=== PATIENT | male | born 1955 | race Caucasian/White ===

== ENCOUNTER → 2020-07-21 09:28 | Outpatient (BNVA) | payer OTHER, SELFPAY | PROVIDERS: Visit Provider Surgery | DX: Z20.822 Contact with and (suspected) exposure to COVID-19 (principal) | CPT/HCPCS: 87635 ==

== ENCOUNTER 2020-07-26 09:41 | Day surgery (SDC) | payer OTHER, SELFPAY ==
[2020-07-24 13:23] VITALS: BMI 25.1
--- NOTE | 2020-07-26 10:13 | ANES.PREANE2 ---
Pre-Anesthetic Assessment Pre-Anesthetic Assessment: Height/Weight: Height 1.75 m Weight 77.111 kg Proposed Procedure: Operation Date: 07/26/20 11:30 Proposed Procedures p EGD 98301 [id number] k62.5 k21.9(Not Applicable) - Pasquale Coon MD s Colonoscopy(Not Applicable) - Pasquale Coon MD Was Beta Pamela taken within 24 hours: N/A Was Clonidine taken within 24 hours: N/A Social: Social History: No alcohol and No tobacco Exam: Pre-Anes Outpt Exam: alert, oriented x 3, clear to auscultation bilaterally and regular rate & rhythm Airway: Submandibular: WNL Cervical ROM: WNL MP: 2 Dentition: Full GI: GI: GERD Musc/skel: Musc/skel: OA/DJD Anesthetic Plan: ASA status: 2 Anesthesia: MAC Risk of > 500 ml blood loss (7ml/kg in children): No PFSH Anesthesia PFSH: Medical History Gastroesophageal reflux disease Family History Grandmother Cancer Brother Diabetes Mother Hypertension Denies family history of CAD (coronary artery disease) Stroke Social History Smoking and tobacco status: never smoked Alcohol intake: never Lives independently: Yes Household members: spouse Data Anesthesia Cardiac Studies: No Data to Display
[2020-07-26 10:32] VITALS: BP 152/84; PULSE 90; RESP 18; TEMP 36.5; O2SAT 96
[2020-07-26] MEDS: sodium chloride 0.9% 1,000 ML 30 ML IV (10:46)
--- NOTE | 2020-07-26 11:36 | W.PM.OPSFHP ---
Same Day Surgery H&P Indication for Procedure/HPI DATE OF PROCEDURE: July 26, 2020 CHIEF COMPLAINT/INDICATIONFOR SURGICAL PROCEDURE: Blood in stool PREOP DIAGNOSIS: Bleeding per rectum PLANNED PROCEDRUE: Operation Date: 07/26/20 11:30 Proposed Procedures p EGD [id number] k62.5 k21.9(Not Applicable) - Pasquale Coon MD s Colonoscopy(Not Applicable) - Pasquale Coon MD This is a pleasant 65 years old gentleman presents with history of frequent acid reflux and has been on proton pump inhibitors for several years and age is getting worse. Patient reports he cannot increase the PPI because it does not make him sleep. Also patient reports a bout of bloody diarrhea that happen once before couple of months and he is concerned. Patient denies history of colon cancer. And reports that he never had a colonoscopy before Interval history 07/26/2020 Patient comes today for EGD and colonoscopy for diagnostic purposes ROS All systems have been reviewed negative except as per the above or per problem list Medications/Allergies* Home Medications Medication Instructions Recorded Confirmed Type aspirin 81 mg tablet,delayed 81 mg PO DAILY 06/19/20 07/24/20 History release meloxicam 15 mg tablet 15 mg PO DAILY 06/19/20 07/24/20 History omeprazole 20 mg capsule,delayed 20 mg PO DAILY 06/19/20 07/24/20 History release Allergies/Adverse Reactions Allergy/AdvReac Type Severity Reaction Status Date / Time No Known Allergies Allergy Verified 06/19/20 14:58 Current Medications: Generic Name Dose Route Start Last Admin Trade Name Freq PRN Reason Stop Dose Admin Sodium Chloride 1,000 mls @ 30 mls/hr 07/26/20 10:30 07/26/20 10:46 Sodium Chloride 0.9% IV 30 mls/hr .Q24H SAÚL Administration Pertinent History/Comorbid Conditions* Medical History (Updated 06/19/20 @ 14:58 by Pasquale Coon MD) Gastroesophageal reflux disease Family History (Updated 06/19/20 @ 13:31 by Rachel Rocha) Diabetes Brother Cancer Grandmother Hypertension Mother Denies family history of CAD (coronary artery disease) Stroke Social History Smoking and tobacco status: never smoked Alcohol intake: never Lives independently: Yes Household members: spouse Pertinent Exam Findings alert, oriented x 3, clear to auscultation bilaterally, regular rate & rhythm and procedure specific exam findings (Abdominal examination nontender nondistended soft) Recommendations Surgery/Procedure today (Diagnostic EGD and colonoscopy) Other Plans: Plan of care; After thorough history and physical examination and reviewing the chart, plan to perform a diagnostic esophagogastroduodenoscopy and diagnostic colonoscopy with possible biopsy and possible polypectomy. I discussed with the patient in detail the risks,benefits,alternatives and indications.The risk of aspiration, bleeding, soft tissue injury, perforation of the stomach/esophagus/colon and other potential concomitant complications were explained to the patient in details also the potential need for Thoracotomy and or Laproscoy/Laparotomy to repair any related complications including but not limited to colectomy and or Closotomy. The patient understood this well and did agree to proceed. Rationale was carefully and clearly discussed with the patient.Appropriate informed consent have been reviewed and signed Verbal and written Instructions were given to the patient for colonoscopy prep Coding Level of Care Code Acute Nutrition And Dietetics Instructor for Rhona Juarez
[2020-07-26 12:58] VITALS: BP 104/77; PULSE 79; RESP 16; TEMP 36.8; O2SAT 96
[2020-07-26 13:13] VITALS: BP 116/97; PULSE 81; RESP 16; TEMP 36.3; O2SAT 94
--- NOTE | 2020-07-26 15:37 | ANE.PACU2 ---
Inpatient post-anesthesia follow up: Airway intact: Yes Vital signs: Temperature 97.4 F Pulse Rate 81 Respiratory Rate 16 Blood Pressure 116/97 Pulse Oximetry 94 Oxygen Delivery Me thod Room Air Oxygen Flow Rate 4 Fraction of Inspir ed Oxygen Hydration adequate: Yes Nausea and vomiting: No Pain level: 1 Mental status: Baseline
[2020-07-27 07:57] LABS: H. Pylori / CLO Test Negative
== END 2020-07-26 13:22 | disposition home or self-care (01) ==
PROVIDERS: Visit Provider Surgery
PROC: 0DJ08ZZ Inspection of Upper Intestinal Tract, Via Natural or Artificial Opening Endoscopic (ICD-10-PCS; CPT 43235; principal; 2020-07-26 11:30)
PROC: 0DJD8ZZ Inspection of Lower Intestinal Tract, Via Natural or Artificial Opening Endoscopic (ICD-10-PCS; CPT 45378; 2020-07-26 11:30)
DX: K92.1 Melena (principal); K57.30 Diverticulosis of large intestine without perforation or abscess without bleeding; K21.00 Gastro-esophageal reflux disease with esophagitis, without bleeding; K44.9 Diaphragmatic hernia without obstruction or gangrene; K29.70 Gastritis, unspecified, without bleeding; Z79.82 Long term (current) use of aspirin; M19.90 Unspecified osteoarthritis, unspecified site
CPT/HCPCS: 43239; 45378; 87077; 96360; 96361; J2704; J7030

== ENCOUNTER 2021-08-21 11:52 | Emergency (ER) | payer OTHER, SELFPAY ==
[2021-08-21 12:05] VITALS: BP 179/88; PULSE 102; RESP 16; TEMP 36.6; O2SAT 98; BMI 25.1
--- NOTE | 2021-08-21 12:18 | CT_ITS ---
WS: [id number] CT ABDOMEN AND PELVIS NONCONTRAST HISTORY: rectal bleeding TECHNIQUE: Imaging performed through the abdomen and pelvis. Coronal and sagittal reformats are submi tted. All CT scans at [facility] use at least one of these dose optimization techniques: auto mated exposure control; mA and/or kV adjustment per patient size (includes targeted exams where dose is matched to clinical indication); or iterative reconstruction. DLP: 1345.91 mGy.cm COMPARISON: None available. Lower thorax: Lung bases are hyperexpanded. Normal size heart. Small hiatal hernia. Liver: Normal size liver. No mass or bile duct dilatation. Gallbladder: Normal gallbladder. Pancreas: Normal size and attenuation. Normal pancreatic duct. No pancreatitis or mass. Spleen: Normal. Adrenal glands: Normal. No mass. Right kidney: Normal size kidney with no mass or hydronephrosis. Left kidney: Normal size kidney with no mass or hydronephrosis. Aorta: Mild atherosclerosis abdominal aorta with no aneurysm. No free fluid, intraperitoneal air or significant lymphadenopathy. GI tract: Mildly distended stomach. No small bowel obstruction. The appendix is normal. Mild diffuse fecal retention. Significant diverticular disease throughout the colon but greatest in the descending and sigmoid colon. Lumen becomes narrowed to the sigmoid colon with innumerable diverticula. No defi nite evidence for acute diverticulitis. Abdominal wall: Negative. No hernia. Pelvis: No free fluid. Well-distended urinary bladder. Bilateral inguinal canals are patent containin g fat only. Osseous structures: Mild increase in the lumbar lordosis with facet joint arthritis at L4-5 and L5-S1 . CT/CT abdomen pelvis wo con [id number] IMPRESSION: 1. Extensive diverticulosis in the descending and sigmoid colon. Innumerable d iverticula throughout the sigmoid region with narrowing of the lumen. No eviden ce for acute diverticulitis. 2. Mild atherosclerosis aorta. 3. Normal appendix.
--- NOTE | 2021-08-21 12:29 | ED_ITS ---
HPI - General Adult General: Chief complaint: GI Bleed Stated complaint: Blood in Stool Time Seen by Provider: 08/21/21 12:18 History of Present Illness: Patient is a 66-year-old male with history of diverticulosis, last colonoscopy was in 2020 presenting to the emergency room with 4 days of blood in stool. Patient tells me that every time he stool, he noticed large bright color streaks of blood in his stool. Patient denies any rectal pain. Denies any fever/chills, bleeding without stooling, abdominal pain use of anticoagulation or cirrhosis. Patient is no focal abdominal pain. Denies any fever/chills, cough, chest pain, lightheadedness shortness of breath, palpitation, runny nose sore throat, nausea/vomiting. Patient thinks that everything started shortly after he ate pizza on Friday. Patient has no prior abdominal surgeries. No complaints at this time. Onset: 4 days ago Duration:4 days Location:home Severity:moderate Associated symptoms: Deny chest pain, dyspnea, nausea, rash, palpitations or vomiting Review of Systems Const: Denies: fever(s) or chills Eyes: Denies: change in vision ENMT: Denies: mouth pain Card: Denies: chest pain or palpitations Resp: Denies: dyspnea or non-productive cough GI: Reports: other (+blood in stool); Denies: abdominal pain, nausea, vomiting or diarrhea : Denies: dysuria Musc: Denies: extremity pain Skin/Breast: Denies: rash or new lesions Neuro: Denies: weakness in extremities Psych: Reports: other (Normal mood) Dariel/Lymph: Denies: easy bruising [facility] PFSH: Medical History Bleeding per rectum Diverticulosis Gastritis Gastroesophageal reflux disease Hiatal hernia Hypertension Surgical History History of tonsillectomy and adenoidectomy Family History Grandmother Cancer Brother Diabetes Mother Hypertension Denies family history of CAD (coronary artery disease) Stroke Social History Smoking and tobacco status: former smoker Alcohol intake: never Lives independently: Yes Household members: spouse Physical Exam Const: COMMON NORMALS: alert HENMT: COMMON NORMALS: atraumatic HEAD & SCALP: atraumatic MOUTH: moist mucous membranes not abnormal Eye: COMMON NORMALS: EOMs intact bilaterally and conjunctivae normal CONJUNCTIVA: Yes conjunctivae normal Neck/C-Spine: COMMON NORMALS: full ROM and supple Resp: COMMON NORMALS: normal respiratory effort and clear to auscultation bilaterally AUSCULTATION: clear to auscultation bilaterally Cardio: COMMON NORMALS: regular rate RATE: regular rate GI: COMMON NORMALS: Soft to palpation and non-tender PALPATION: Yes Soft to palpation OTHER: No focal TTP. NO guarding rebound, guarding, rigidity. No CVA tenderness to percussion. Neg Levine/Neg McBurney's point tenderness, no suprabupic tenderness to palpation. RECTAL: blood in the stool hemoocult positive, no visible hemorrhoids or anal fissure Extremity: COMMON NORMALS: full ROM Neuro: SENSORIUM/ORIENTATION: Yes alert MOTOR EXAM: No Abnormal motor strength present and Other motor observations present (no focal motor deficits) Psych: COMMON NORMALS: speech normal SPEECH: Yes normal speech MOOD & AFFECT: Yes euthymic mood Course Vital Signs: Vital signs: Vital Signs Temperature 97.8 F 08/21/21 12:05 Pulse Rate 86 08/21/21 12:38 Respiratory Rate 16 08/21/21 12:05 Blood Pressure 113/91 08/21/21 12:38 Pulse Oximetry 98 08/21/21 12:38 [facility] - General Adult Medical Decision Making 66-year-old male with a history of diverticulosis presenting to the emergency room for concerns of bright red blood per rectum x4 days. On physical exam, patient is hemodynamically stable. No visible conjunctival pallor. No focal abdominal tenderness to palpation. Rectal exam showed dark stools Hemoccult positive. Hemoglobin of 10 today without any prior for comparison. CT of pelvis not showing signs of diverticulitis. Patient was noted to have extensive diverticulosis. Discussed case with Dr. Carson at 1:[address] Carson recommend close follow-up tomorrow's clinic for reassessment. I have given patient follow up with our case manager specialist to be seen by Dr. Carson for reassessment tomorrow in clinic. Patient aware of a call from our case manager specialist to schedule for appointment(s) and verbalizes understanding of the imp ortance of following up. Rx iron for anemia Disposition: Discharge. Patient counseled regarding diagnostic impression, treatment plan. Patient given ED strict return precautions to return for eva nuation, worsening, or development of new symptoms. Instructed to f/u w/ Dr. Carson regarding symptoms today. Patient verbalized understanding. Patient is instructed come back to the emergency room if he notices any significant bleeding, lightheadedness, abdominal pain, or any new or concerning complaints. Lab Data : 08/21/21 12:38 08/21/21 12:38 Radiology Impressions Abdomen/Pelvis CT 08/21/21 12:18 IMPRESSION: 1. Extensive diverticulosis in the descending and sigmoid colon. Innumerable diverticula throughout the sigmoid region with narrowing of the lumen. No evidence for acute diverticulitis. 2. Mild atherosclerosis aorta. 3. Normal appendix. Laboratory Results WBC 6.9 10^3/uL (4.0-10.0) 08/21/21 12:38 RBC 3.04 10^6/uL (4.1-5.3) L 08/21/21 12:38 Hgb 10.0 g/dL (11.7-16.6) L 08/21/21 12:38 Hct 26.8 % (42.0-52.0) L 08/21/21 12:38 MCV 88.2 fl (80-94) 08/21/21 12:38 MCH 32.9 pg (28.0-34.0) 08/21/21 12:38 MCHC 37.3 g/dL (30.0-36.0) H 08/21/21 12:38 RDW 12.0 % (12.1-15.1) L 08/21/21 12:38 Plt Count 309 10^3/cmm (130-400) 08/21/21 12:38 MPV 8.9 fL (7.4-10.4) 08/21/21 12:38 Neut % (Auto) 62.6 % 08/21/21 12:38 Lymph % (Auto) 27.3 % 08/21/21 12:38 [place] % (Auto) 9.0 % 08/21/21 12:38 Eos % (Auto) 0.6 % 08/21/21 12:38 Baso % (Auto) 0.4 % 08/21/21 12:38 Neut # (Auto) 4.31 10^3/uL (1.8-7.7) 08/21/21 12:38 Lymph # (Auto) 1.9 10^3/uL (0.8-4.8) 08/21/21 12:38 [place] # (Auto) 0.6 10^3/uL (0.2-0.9) 08/21/21 12:38 Eos # (Auto) 0.0 10^3/uL (0.0-0.8) 08/21/21 12:38 Baso # (Auto) 0.0 10^3/uL (0.0-0.1) 08/21/21 12:38 Nucleated RBC % (auto) 0 % 08/21/21 12:38 Nucleated RBCs # 0.0 /100WBC 08/21/21 12:38 Sodium 136 mmol/L (136-145) 08/21/21 12:38 Potassium 3.3 mmol/L (3.5-5.1) L 08/21/21 12:38 Chloride 97 mmol/L (98-107) L 08/21/21 12:38 Carbon Dioxide 25 mmol/L (22-29) 08/21/21 12:38 Anion Gap 17.3 (5-19) 08/21/21 12:38 BUN 29 mg/dL (8-23) H 08/21/21 12:38 Creatinine 0.8 mg/dL (0.7-1.2) 08/21/21 12:38 GFR Calculation 97.3 mL/min (90-130) 08/21/21 12:38 Glucose 105 mg/dL (65-115) 08/21/21 12:38 Calculated Osmolality 288 mOsm/kg (285-295) 08/21/21 12:38 Calcium 8.8 mg/dL (8.5-10.5) 08/21/21 12:38 Total Bilirubin 0.7 mg/dL (0.15-1.2) 08/21/21 12:38 AST 14 U/L (0-40) 08/21/21 12:38 ALT 8 U/L (0-41) 08/21/21 12:38 Alkaline Phosphatase 53 IU/L (40-130) 08/21/21 12:38 Total Protein 6.6 g/dL (6.6-8.7) 08/21/21 12:38 Albumin 4.2 g/dL (3.5-5.2) 08/21/21 12:38 Globulin 2.4 g/dL (1.3-4.6) 08/21/21 12:38 Lipase 25 U/L (13-60) 08/21/21 12:38 Imaging Data Other Imaging: Radiologist's impression: [facility] [address] [place] [address] CT Scan Report Signed Patient: Julian Huddleston Unit #: [id number] : 1955 Age/Sex: 66 / M ADM Date: 08/21/21 Loc: ER Room/Bed: Attending Dr: Ordering Provider/Ordering MD: Johan Enriquez MD Date of Service: 08/21/21 Procedure(s): CT abdomen pelvis con 19606 Accession Number(s): [id number] Report Number: [id number] WS: [id number] CT ABDOMEN AND PELVIS NONCONTRAST HISTORY: rectal bleeding TECHNIQUE: Imaging performed through the abdomen and pelvis. Coronal and sagittal reformats are submitted.? All CT scans at [facility] use at least one of these dose optimization techniques: automated exposure control; mA and/or kV adjustment per patient size (includes targeted exams where dose is matched to clinical indication); or iterative reconstruction. ? DLP: 1345.91 mGy.cm COMPARISON: None available. Lower thorax: Lung bases are hyperexpanded. Normal size heart. Small hiatal hernia. Liver: Normal size liver. No mass or bile duct dilatation. Gallbladder: Normal gallbladder. Pancreas: Normal size and attenuation. Normal pancreatic duct. No pancreatitis or mass. Spleen: Normal. Adrenal glands: Normal. No mass. Right kidney: Normal size kidney with no mass or hydronephrosis. Left kidney: Normal size kidney with no mass or hydronephrosis. Aorta: Mild atherosclerosis abdominal aorta with no aneurysm. No free fluid, intraperitoneal air or significant lymphadenopathy. GI tract: Mildly distended stomach. No small bowel obstruction. The appendix is normal. Mild diffuse fecal retention. Significant diverticular disease throughout the colon but greatest in the descending and sigmoid colon. Lumen becomes narrowed to the sigmoid colon with innumerable diverticula. No definite evidence for acute diverticulitis. Abdominal wall: Negative. No hernia. Pelvis: No free fluid. Well-distended urinary bladder. Bilateral inguinal canals are patent containing fat only. Osseous structures: Mild increase in the lumbar lordosis with facet joint arthritis at L4-5 and L5-S1. CT/CT abdomen pelvis wo con [id number] IMPRESSION: ? 1.? Extensive diverticulosis in the descending and sigmoid colon. Innumerable diverticula throughout the sigmoid region with narrowing of the lumen. No evid ence for acute diverticulitis. 2.? Mild atherosclerosis aorta. 3.? Normal appendix. ? Dictated By: Jackelyn Ferrer DO Signed By: Jackelyn Ferrer DO Signed Date/Time: 08/21/21 1304 DD/ 1257 Discharge Plan Discharge Patient Disposition: Home Clinical Impression: Diverticulosis, Rectal bleed Condition: Stable Prescriptions: New ferrous sulfate 325 mg (65 mg iron) tablet 325 mg PO DAILY 20 Days Qty: 20 0RF No Action meloxicam 15 mg tablet 15 mg PO DAILY 0RF Hold Instructions: Resume on 07/29/20. aspirin 81 mg tablet,delayed release (DR/EC) 81 mg PO DAILY 0RF Hold Instructions: Resume on 07/29/20. hydrochlorothiazide 25 mg tablet 25 mg PO DAILY 0RF omeprazole 20 mg capsule,delayed release(DR/EC) 20 mg PO BID Qty: 60 2RF Discharge Orders: Discharge ED (Routine); Ordered 08/21/21 Ordered By: Johan Enriquez Discharge Diet: Advance as tolerated Discharge Activity: Increase activity as tolerated Activity Restrictions/Additional Instructions: Our case manager specialist will have you follow-up with Dr. Carson in his office tomorrow. You would be expected to have a phone call with our case manager specialist who will put you on the schedule. You can expect a call from us in the next 2-3 days. If you don't hear from us, call us back in the emergency room at [phone]. Back if you have any lightheadedness, abdominal pain, worsening rectal bleeding, or anything else prior to seeing Dr. Carson Coding Level of Care Code ED [employer] Attendant for [facility] Fwd Exam Comprehensive
[2021-08-21 12:38] VITALS: BP 113/91; PULSE 86; O2SAT 98
[2021-08-21 13:08] LABS: Alanine Aminotransferase 8 U/L (0-41); Albumin Level 4.2 g/dL (3.5-5.2); Alkaline Phosphatase 53 IU/L (40-130); Anion Gap 17.3 (5-19); Aspartate Amino Transferase 14 U/L (0-40); Basophils % 0.4 %; Blood Urea Nitrogen 29 mg/dL (8-23); Calcium 8.8 mg/dL (8.5-10.5); Carbon Dioxide 25 mmol/L (22-29); Chloride 97 mmol/L (98-107); Creatinine Clr Calc Pharmacy 96.6683; Eosinophils % 0.6 %; Globulin 2.4 g/dL (1.3-4.6); Glomerular Filtration Rate 97.3 mL/min (90-130); Glucose 105 mg/dL (65-115); Hematocrit 26.8 % (42.0-52.0); Lipase 25 U/L (13-60); Lymphocytes # 1.9 10^3/uL (0.8-4.8); Lymphocytes % 27.3 %; Mean Corpuscular HGB Conc 37.3 g/dL (30.0-36.0); Mean Corpuscular Hemoglobin 32.9 pg (28.0-34.0); Mean Corpuscular Volume 88.2 fl (80-94); Mean Platelet Volume 8.9 fL (7.4-10.4); Monocytes # 0.6 10^3/uL (0.2-0.9); Neutrophils # 4.31 10^3/uL (1.8-7.7); Neutrophils % 62.6 %; Nucleated Red Blood Cells % 0 %; Osmolality Calculated 288 mOsm/kg (285-295); Platelet Count 309 10^3/cmm (130-400); Potassium 3.3 mmol/L (3.5-5.1); Red Blood Count 3.04 10^6/uL (4.1-5.3); Sodium 136 mmol/L (136-145); Total Bilirubin 0.7 mg/dL (0.15-1.2); Total Protein 6.6 g/dL (6.6-8.7); White Blood Count 6.9 10^3/uL (4.0-10.0)
[2021-08-21 13:38] VITALS: BP 127/87; PULSE 82; O2SAT 97
[2021-08-21 13:54] VITALS: BP 134/87; PULSE 89; RESP 15; O2SAT 97
[2021-08-21 13:54] LABS: Add Urine Microscopic? YES; Bilirubin Urine Neg (Negative); Blood Urine Neg (Negative); Glucose Urine UA Norm (Normal); Ketones Urine 1+ (Negative); Leukocyte Esterase Urine Negative (Negative); Nitrate Urine Negative (Negative); Protein Urine Neg (Negative); Sulfosalicylic Acid Urine Negative (Negative); Urine Appearance Clear (CLEAR); Urine Color Yellow (Yellow); Urobilinogen Urine Norm (Negative); pH Urine 5 (5-7)
[2021-08-21 13:55] LABS: Add Urine Culture? No; RBC Urine 0-4 /hpf (0-2); Squamous Epithelial Cell Urine 0-4 /hpf (0-5)
--- NOTE | 2021-08-21 14:16 | DCPLANNER ---
Addendum entered by Mely Mejia 08/26/21 04:26: Patient had a follow up appointment scheduled for 08.22.[address] Carson at General Surgery - patient did attend appointment. Original Note: assistant manager retail was asked to schedule a follow up appointment for patient with general surgery, Dr. Carson. assistant manager retail called the general surgery clinic, spoke with Pepper, gave clinic patients information. assistant manager retail was told that clinic would need a [facility] auth to schedule an appointment since patient has [employer] insurance. assistant manager retail sent patients information to Debbie with [employer] [facility] for the authorization process to be started. assistant manager retail gave patient the phone number to general surgery to call for appointment information.
== END 2021-08-21 13:56 | disposition home or self-care (01) ==
PROVIDERS: Emergency Provider Emergency Medicine
DX: D50.9 Iron deficiency anemia, unspecified (principal); K62.5 Hemorrhage of anus and rectum; K57.90 Diverticulosis of intestine, part unspecified, without perforation or abscess without bleeding; I10 Essential (primary) hypertension
CPT/HCPCS: 74176; 80053; 81001; 83690; 85025; 99283

== ENCOUNTER → 2021-08-22 13:00 | Outpatient (BNVA) | payer OTHER, SELFPAY | PROVIDERS: Visit Provider Surgery | DX: K57.90 Diverticulosis of intestine, part unspecified, without perforation or abscess without bleeding (principal); K62.5 Hemorrhage of anus and rectum | CPT/HCPCS: 99213 ==

== ENCOUNTER → 2021-11-28 07:47 | Outpatient (BNVA) | payer OTHER, SELFPAY | PROVIDERS: Visit Provider Orthopaedic Surgery | DX: M67.912 Unspecified disorder of synovium and tendon, left shoulder (principal) | CPT/HCPCS: 20610; 99203; J0702; J3490 ==

== ENCOUNTER → 2022-06-26 07:44 | Outpatient (BNVA) | payer OTHER, SELFPAY | PROVIDERS: Referring Provider Family Medicine; Visit Provider Orthopaedic Surgery | DX: M67.912 Unspecified disorder of synovium and tendon, left shoulder (principal) | CPT/HCPCS: 99213 ==

== ENCOUNTER 2022-07-15 07:47 | Outpatient (CLI) | payer OTHER, SELFPAY ==
--- NOTE | 2022-07-15 08:00 | MR_ITS ---
WS: [id number] MRI LEFT SHOULDER HISTORY: Pain for one year. No known injury. COMPARISON: Shoulder radiograph 10/19/2021 TECHNIQUE: Multiplanar sequences of the shoulder joint are submitted. Moderate to severe AC joint arthritis. Joint space narrowing with osteophytes. Subchondral edema. 5.8 mm osteophyte from the acromion encroaches upon the myotendinous insertion of the supraspinatus. The re is a small amount of fluid in the subacromial and subdeltoid bursa. Mild subacromial impingement. No os acromion. Biceps tendon in normal position. There is an osteophyte from the humeral head contac ting the biceps tendon as it exits the bicipital groove. Moderate to severe fraying of the supraspinatus tendon. There is fraying along the articular and burs al surfaces of the tendon. No definite tears are identified. No full-thickness tear for sure. There i s encroachment upon the supraspinatus tendon by subacromial impingement. Mild tendinopathy distal sub scapularis tendon without tear. Subscapularis tendon is being distorted and contacted by an osteophyt e from the humeral head. Infraspinatus tendon is intact. No muscle atrophy or edema. No labral tear i s identified. Small joint effusion. Fraying of the labrum but no definite tears are identified. Slightly elevated humeral head. Osteophytic ridging around the humeral head. MR/MR shoulder LT wo con* [id number] IMPRESSION: 1. 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 2. Marked fraying involving the articular and bursal surfaces of the supraspin atus tendon but no tear identified. 3. Mild subacromial impingement. 4. Mild distal subscapularis tendinopathy. The subscapularis tendon is being d istorted and slightly displaced by humeral head osteophyte.
== END 2022-07-15 07:48 | disposition home or self-care (01) ==
LOC: RAD 07:50
PROVIDERS: PCP Family Medicine; Visit Provider Orthopaedic Surgery
DX: M67.912 Unspecified disorder of synovium and tendon, left shoulder (principal); M25.812 Other specified joint disorders, left shoulder
CPT/HCPCS: 73221

== ENCOUNTER → 2022-08-06 09:57 | Outpatient (BNVA) | payer OTHER, SELFPAY | PROVIDERS: PCP Family Medicine; Visit Provider Orthopaedic Surgery | DX: Z09 Encounter for follow-up examination after completed treatment for conditions other than malignant neoplasm (principal); M67.912 Unspecified disorder of synovium and tendon, left shoulder | CPT/HCPCS: 99213 ==

== ENCOUNTER 2022-08-08 06:00 | Outpatient (RCR) | payer OTHER, SELFPAY | END 2022-09-06 23:59 | disposition home or self-care (01) | LOC: MPT 06:00 | PROVIDERS: Visit Provider Orthopaedic Surgery | DX: M19.012 Primary osteoarthritis, left shoulder (principal) | CPT/HCPCS: 97110; 97161 ==

== ENCOUNTER 2022-09-07 06:00 | Outpatient (RCR) | payer OTHER, SELFPAY | END 2022-10-07 23:59 | disposition home or self-care (01) | LOC: MPT 06:00 | PROVIDERS: Visit Provider Orthopaedic Surgery | DX: M19.012 Primary osteoarthritis, left shoulder (principal) | CPT/HCPCS: 97110; 97140 ==

== ENCOUNTER 2022-10-08 06:00 | Outpatient (RCR) | payer OTHER, SELFPAY | END 2022-11-07 23:59 | disposition home or self-care (01) | LOC: MPT 06:00 | PROVIDERS: Visit Provider Orthopaedic Surgery | DX: M19.012 Primary osteoarthritis, left shoulder (principal) | CPT/HCPCS: 97110; 97140 ==

== ENCOUNTER 2022-11-08 06:00 | Outpatient (RCR) | payer OTHER, SELFPAY | END 2022-12-05 23:59 | disposition home or self-care (01) | LOC: MPT 06:00 | PROVIDERS: Visit Provider Orthopaedic Surgery | DX: M19.012 Primary osteoarthritis, left shoulder (principal) | CPT/HCPCS: 97110 ==

== ENCOUNTER → 2023-02-27 10:18 | Outpatient (BNVA) | payer OTHER, SELFPAY | PROVIDERS: Visit Provider Nurse Practitioner Family | DX: Z80.8 Family history of malignant neoplasm of other organs or systems (principal); Z85.820 Personal history of malignant melanoma of skin; D22.5 Melanocytic nevi of trunk; L82.1 Other seborrheic keratosis; L57.8 Other skin changes due to chronic exposure to nonionizing radiation | CPT/HCPCS: 11102; 17000; 99213 ==

== ENCOUNTER 2023-09-19 06:00 | Outpatient (RCR) | payer OTHER, SELFPAY | END 2023-10-08 23:59 | disposition home or self-care (01) | LOC: MPT 06:00 | PROVIDERS: Visit Provider Family Medicine | DX: M25.561 Pain in right knee (principal) | CPT/HCPCS: 97110; 97162 ==

== ENCOUNTER → 2023-10-03 07:51 | Outpatient (BNVA) | payer OTHER, SELFPAY | PROVIDERS: Visit Provider Nurse Practitioner Family | DX: L57.0 Actinic keratosis (principal); Z80.8 Family history of malignant neoplasm of other organs or systems; D22.5 Melanocytic nevi of trunk; L57.8 Other skin changes due to chronic exposure to nonionizing radiation; L81.4 Other melanin hyperpigmentation; L72.0 Epidermal cyst; Z85.820 Personal history of malignant melanoma of skin | CPT/HCPCS: 17000; 99213 ==

== ENCOUNTER 2023-10-09 06:00 | Outpatient (RCR) | payer OTHER, SELFPAY | END 2023-11-08 23:59 | disposition home or self-care (01) | LOC: MPT 06:00 | PROVIDERS: Visit Provider Family Medicine | DX: M25.561 Pain in right knee (principal) | CPT/HCPCS: 97110 ==

== ENCOUNTER 2023-11-09 06:00 | Outpatient (RCR) | payer OTHER, SELFPAY | END 2023-12-08 23:59 | disposition home or self-care (01) | LOC: MPT 06:00 | PROVIDERS: Visit Provider Family Medicine | DX: M25.561 Pain in right knee (principal) | CPT/HCPCS: 97110 ==

== ENCOUNTER 2023-12-09 06:00 | Outpatient (RCR) | payer OTHER, SELFPAY | END 2024-01-08 23:59 | disposition home or self-care (01) | LOC: MPT 06:00 | PROVIDERS: PCP Family Medicine; Visit Provider Family Medicine | DX: M25.561 Pain in right knee (principal) | CPT/HCPCS: 97110 ==

== ENCOUNTER → 2024-04-14 10:28 | Outpatient (BNVA) | payer OTHER, SELFPAY | PROVIDERS: PCP Family Medicine; Visit Provider Nurse Practitioner Family | DX: L82.1 Other seborrheic keratosis (principal); L72.0 Epidermal cyst; D18.01 Hemangioma of skin and subcutaneous tissue; L57.8 Other skin changes due to chronic exposure to nonionizing radiation; L81.4 Other melanin hyperpigmentation; Z80.8 Family history of malignant neoplasm of other organs or systems; Z08 Encounter for follow-up examination after completed treatment for malignant neoplasm; Z85.820 Personal history of malignant melanoma of skin; L57.0 Actinic keratosis | CPT/HCPCS: 17000; 99213 ==

== ENCOUNTER 2024-08-18 08:15 | Emergency (ER) | payer OTHER, SELFPAY ==
[2024-08-18] VITALS (13 sets, daily range): BP systolic 136–175; BP diastolic 82–113; PULSE 74–92; RESP 16–18; TEMP 36.1–36.8; O2SAT 96–100
--- NOTE | 2024-08-18 08:39 | XR_ITS ---
WS: [id number] Portable AP upright chest, 08/18/2024 Clinical Data: dyspnea/cough Comparison: None. Findings: No nodules, masses or effusions are seen. The heart is normal. The pulmonary vascularity is not increased. No pneumonia or pneumothorax is seen. There is blunting of the left costophrenic angle which may be from minimal consolidation, minimal pleural fluid atelectasis and/or pleural reaction. The aortic arch shows calcification with tortuosity of the descending thoracic aorta. XR/XR chest 1V portable [id number] Impression: 1. Blunting of the left costophrenic angle. 2. Atherosclerosis.
--- NOTE | 2024-08-18 08:39 | W.ED.WEAKNES ---
HPI - Weakness General: Chief complaint: Weakness Stated complaint: physical eval Time Seen by Provider: 08/18/24 08:22 History of Present Illness: 69-year-old male presents emergency room complaining of generally feeling tired and weak. He traces it back to a few weeks ago patient had an episode of bloody diarrhea he related to some foods that he ate and self diagnosed as having diverticulitis he was not on any antibiotics it resolved but he states since then he is felt very weak. He gets chest pain and discomfort with exertion. He gives example when he push mows the lawn he will have to stop several x 5 minutes at a time to catch his breath but allow the chest pain to cookie and then he is able to resume and he will get another episode after period of time. He states usually when he mows his lawn he will have at least 3 times or off to stop for 5 minutes because of chest pain and discomfort. He had a colonoscopy approximately 5 years ago he was advised he had some diverticuli but no polyps or other abnormalities did not request for him to have a repeat any sooner than the typical 10 years. Patient states he has had 3 episodes in the past 3 [place] bloody diarrhea resolves assumed it was diverticulitis he adjusted his diet and it seems to resolve on its own. Associated symptoms: Reports chest pain; Denies chills, dysuria, fever(s), nausea or vomiting Review of Systems Const: Denies: fever(s) or chills Card: Reports: chest pain, palpitations, dyspnea on exertion and orthopnea Resp: Reports: dyspnea GI: Reports: hematochezia; Denies: abdominal pain, nausea, vomiting or hematemesis : Denies: dysuria, urinary frequency or urinary urgency Musc: Denies: neck pain or back pain Skin/Breast: Denies: rash PFSH ED PFSH: Medical History Hypertension Diverticulosis Hiatal hernia Gastritis Bleeding per rectum Gastroesophageal reflux disease Surgical History History of esophagogastroduodenoscopy (EGD) 07/26/2020 Hx of colonoscopy 07/26/2020 History of tonsillectomy and adenoidectomy Family History Grandmother Cancer Brother Diabetes Mother Hypertension Denies family history of CAD (coronary artery disease) Stroke Social History Smoking and tobacco/nicotine status: former use of tobacco/nicotine Alcohol intake: never Substance/Drug Use: never Lives independently: Yes Household members: spouse Physical Exam Const: COMMON NORMALS: no acute distress GENERAL APPEARANCE: cooperative and comfortable ORIENTATION/CONSCIOUSNESS: Yes awake, Yes oriented to person, Yes oriented to place and Yes oriented to time HENMT: COMMON NORMALS: normocephalic, atraumatic and hearing grossly normal bilaterally HEAD & SCALP: normocephalic and atraumatic Resp: COMMON NORMALS: normal respiratory effort, No retractions, No use of accessory muscles and clear to auscultation bilaterally AUSCULTATION: clear to auscultation bilaterally Cardio: COMMON NORMALS: regular rate, regular rhythm and No murmurs present (Cardio) RATE: regular rate RHYTHM: regular rhythm GI: COMMON NORMALS: Soft to palpation and No hepatosplenomegaly present AUSCULTATION: Yes normoactive bowel sounds PALPATION: Yes Soft to palpation, No Tenderness to palpation present (GI), No Guarding due to palpation present (GI) and Yes No hepatosplenomegaly present Extremity: COMMON NORMALS: normal to inspection, capillary refill normal, no clubbing, cyanosis or edema, no calf tenderness and no pedal edema Neuro: SENSORIUM/ORIENTATION: Yes oriented to person, Yes oriented to place and Yes oriented to time Skin: COMMON NORMALS: no rashes or lesions noted GENERAL SKIN EXAM: no rashes or lesions noted Course Vital Signs: Vital signs: Vital Signs Temperature 98 F 08/18/24 13:06 Pulse Rate 76 08/18/24 13:06 Respiratory Rate 18 08/18/24 13:06 Blood Pressure 154/112 08/18/24 13:06 Pulse Oximetry 100 08/18/24 11:56 Oxygen Delivery Me thod Room Air 08/18/24 08:28 MDM - Weakness Medical Decision Making Patient has several different things going on all of which are quite concerning first he has a pretty substantial history of stable angina. It sounds like it is escalating he certainly needs further cardiac evaluation. He additionally has pretty noticeable anemia it is microcytic in nature suspect from GI losses although the Hemoccult today was negative and he has not identified any GI losses. On his CT however there is a circumferential thickening of the colon at the hepatic flexure which radiology read is very concerning for colon cancer he tells me he did have a previous colonoscopy several years ago he cannot member the exact date but they were told it was normal and he did not need to do anything more than routine follow-up. Concern with this patient is the potential for coronary artery disease and anemia I recommended to him that we admit transfuse him to a appropriate hemoglobin and then evaluate his heart so that he can be released to have a colonoscopy to evaluate the colonic mass seen on CT and further evaluate this because of his anemia. Expressed to the patient that if we try to do his cardiac evaluation as an outpatient obvious significant delay in getting his workup done for this colonic mass. He expresses understanding this and is adamant that he wants to go home we were able to get him to allow us to discharge him from the ER and go to outpatients for 1 unit of blood to be transfused. Suspect what he has been riding off to diverticulitis has been bleeding from this colonic mass which means has been present for some time expressed this to him and the importance of he get this evaluated quickly and that by staying on obsess would expedite that in a more efficient manner despite this he does not wish to stay. He did sign out paperwork for [facility]INST MEDICAL ADVICE because is not following her treatment encourage patient that he can return anytime if he wishes to be evaluated further. Case management make arrangements for him to see cardiology. Medical Records I reviewed the patient's medical records. Lab Data I reviewed the patient's lab results. 08/18/24 09:02 08/18/24 09:02 Radiology Impressions Chest X-Ray 08/18/24 08:39 Impression: 1. Blunting of the left costophrenic angle. 2. Atherosclerosis. Abdomen/Pelvis CT 08/18/24 09:33 IMPRESSION: 1. Moderate segment of circumferential colonic wall thickening involving the hepatic flexure with change in caliber. No adjacent lymph nodes. Suspicious for neoplasm until proven otherwise. 2. Extensive descending and sigmoid diverticulosis without acute diverticulitis. 3. No abscess or free fluid. 4. 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 5. Extensive atherosclerotic plaque within the aorta and iliac arteries. 6. Patent bilateral inguinal canals containing fat only. There is a small bowel loop closely associated with the orifice of the RIGHT inguinal canal. Laboratory Results WBC 4.22 10^3/uL (3.29-11.43) 08/18/24 09:02 RBC 3.02 10^6/uL (3.85-5.65) L 08/18/24 09:02 Hgb 7.30 g/dL (11.27-16.99) L 08/18/24 09:02 Hct 24.4 % (37-53) L 08/18/24 09:02 MCV 80.8 fl (82-101) L 08/18/24 09:02 MCH 24.2 pg (27-33) L 08/18/24 09:02 MCHC 29.9 g/dL (30-55) L 08/18/24 09:02 RDW 18.2 % (12.1-15.1) H 08/18/24 09:02 Plt Count 424 10^3/cmm (157-399) H 08/18/24 09:02 MPV 8.7 fL (7.4-10.4) 08/18/24 09:02 Neut % (Auto) 52.9 % 08/18/24 09:02 Lymph % (Auto) 31.3 % 08/18/24 09:02 Wagoner % (Auto) 11.6 % 08/18/24 09:02 Eos % (Auto) 2.6 % 08/18/24 09:02 Baso % (Auto) 1.4 % 08/18/24 09:02 Neut # (Auto) 2.23 10^3/uL (1.8-7.7) 08/18/24 09:02 Lymph # (Auto) 1.3 10^3/uL (0.8-4.8) 08/18/24 09:02 [place]er # (Auto) 0.5 10^3/uL (0.2-0.9) 08/18/24 09:02 Eos # (Auto) 0.1 10^3/uL (0.0-0.8) 08/18/24 09:02 Baso # (Auto) 0.1 10^3/uL (0.0-0.1) 08/18/24 09:02 Nucleated RBC % (auto) 0 % 08/18/24 09:02 Nucleated RBCs # 0.0 /100WBC 08/18/24 09:02 Sodium 133 mmol/L (136-145) L 08/18/24 09:02 Potassium 3.7 mmol/L (3.5-5.1) 08/18/24 09:02 Chloride 98 mmol/L (98-107) 08/18/24 09:02 Carbon Dioxide 22 mmol/L (22-29) 08/18/24 09:02 Anion Gap 16.7 (5-19) 08/18/24 09:02 BUN 24 mg/dL (8-23) H 08/18/24 09:02 Creatinine 0.9 mg/dL (0.7-1.2) 08/18/24 09:02 GFR Calculation 84.2 mL/min (90-130) L 08/18/24 09:02 Glucose 121 mg/dL (65-115) H 08/18/24 09:02 Calculated Osmolality 281 mOsm/kg (285-295) L 08/18/24 09:02 Lactic Acid 1.5 mmol/L (0.5-2.2) 08/18/24 09:02 Calcium 9.1 mg/dL (8.5-10.5) 08/18/24 09:02 Total Bilirubin 0.5 mg/dL (0.15-1.2) 08/18/24 09:02 AST 13 U/L (0-40) 08/18/24 09:02 ALT 7 U/L (0-41) 08/18/24 09:02 Alkaline Phosphatase 56 U/L (40-130) 08/18/24 09:02 Troponin T Baseline 32 ng/L (0-15) H 08/18/24 09:02 Troponin T 120 Minute 29.17 ng/L (0-15) H 08/18/24 10:45 Delta Troponin T -2.83 ABS# (0-10) L 08/18/24 10:45 Total Protein 6.8 g/dL (6.6-8.7) 08/18/24 09:02 Albumin 4.0 g/dL (3.5-5.2) 08/18/24 09:02 Globulin 2.8 g/dL (1.3-4.6) 08/18/24 09:02 Urine Color Yellow (Yellow) 08/18/24 08:47 Urine Appearance Clear (CLEAR) 08/18/24 08:47 Urine pH 6.5 (5-7) 08/18/24 08:47 Ur Specific [place] 1.019 (1.005-1.030) 08/18/24 08:47 Urine Protein Negative (Negative) 08/18/24 08:47 Urine Glucose (UA) Negative (Normal) 08/18/24 08:47 Urine Ketones Negative (Negative) 08/18/24 08:47 Urine Blood Negative (Negative) 08/18/24 08:47 Urine Nitrate Negative (Negative) 08/18/24 08:47 Urine Bilirubin Negative (Negative) 08/18/24 08:47 Urine Urobilinogen 1.0 mg/dL (Negative) 08/18/24 08:47 Ur Leukocyte Esterase Negative (Negative) 08/18/24 08:47 Urine RBC 0-2 /hpf (0-2) 08/18/24 08:47 Urine WBC 0-5 /hpf (0-5) 08/18/24 08:47 Ur Squamous Epith Cells 0-5 /hpf (0-5) 08/18/24 08:47 Amorphous Sediment Not Reportable 08/18/24 08:47 Urine Bacteria None seen /hpf (NONE) 08/18/24 08:47 Hyaline Casts 0.40 /lpf 08/18/24 08:47 Blood Type A Positive 08/18/24 09:50 Rho(D) Type Rh positive 08/18/24 09:50 Antibody Screen Negative 08/18/24 09:50 Crossmatch See Detail 08/18/24 09:50 All radiology interpretation(s) finalized by discharge Discharge Plan Discharge Patient Disposition: Home Clinical Impression: Anemia, Stable angina, Microcytic anemia, Mass of hepatic flexure of colon Condition: Stable Discharge Orders: Discharge ED (Routine); Ordered 08/18/24 Ordered By: Kris Connell Coding Level of Care Code 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 Fwd Related Data Home Medications ?Medication ?Instructions ?Recorded ?Confirmed ascorbic acid (vitamin C) 500 mg 250 mg PO DAILY 08/22/21 08/18/24 tablet aspirin 81 mg tablet,delayed 81 mg PO DAILY 08/18/24 08/18/24 release (Sindy Low Dose Aspirin) cholecalciferol (vitamin D3) 125 125 mcg PO DAILY 08/18/24 08/18/24 mcg (5,000 unit) tablet (Vitamin D3) losartan 100 1 tab PO DAILY 08/18/24 08/18/24 mg-hydrochlorothiazide 12.5 mg tablet meloxicam 15 mg tablet 15 mg PO DAILY 08/18/24 08/18/24 omeprazole 20 mg capsule,delayed 20 mg PO QAM 08/18/24 08/18/24 release rosuvastatin 5 mg tablet (Crestor) 5 mg PO QPM 08/18/24 08/18/24 vitamin B complex 1 tab PO DAILY 08/18/24 08/18/24 Allergies Allergy/AdvReac Type Severity Reaction Status Date / Time No Known Allergies Allergy Verified 08/06/22 10:33
[2024-08-18 09:03] LABS: Bilirubin Urine Negative (Negative); Blood Urine Negative (Negative); Glucose Urine UA Negative (Normal); Ketones Urine Negative (Negative); Leukocyte Esterase Urine Negative (Negative); Nitrate Urine Negative (Negative); Protein Urine Negative (Negative); Specific Gravity, Urine 1.019 (1.005-1.030); Urine Appearance Clear (CLEAR); Urine Color Yellow (Yellow); pH Urine 6.5 (5-7)
[2024-08-18 09:08] LABS: Add Urine Microscopic? YES; Bacteria Urine None Seen /hpf; RBC Urine 0-2 /hpf (0-2); Squamous Epithelial Cell Urine 0-5 /hpf (0-5); WBC Urine 0-5 /hpf (0-5)
[2024-08-18 09:11] LABS: Basophils # 0.1 10^3/uL (0.0-0.1); Basophils % 1.4 %; Eosinophils # 0.1 10^3/uL (0.0-0.8); Eosinophils % 2.6 %; Hematocrit 24.4 % (37-53); Lymphocytes # 1.3 10^3/uL (0.8-4.8); Lymphocytes % 31.3 %; Mean Corpuscular HGB Conc 29.9 g/dL (30-55); Mean Corpuscular Hemoglobin 24.2 pg (27-33); Mean Corpuscular Volume 80.8 fl (82-101); Mean Platelet Volume 8.7 fL (7.4-10.4); Monocytes # 0.5 10^3/uL (0.2-0.9); Monocytes % 11.6 %; Neutrophils # 2.23 10^3/uL (1.8-7.7); Neutrophils % 52.9 %; Nucleated Red Blood Cells % 0 %; Platelet Count 424 10^3/cmm (157-399); Red Blood Count 3.02 10^6/uL (3.85-5.65); Red Cell Distribution Width 18.2 % (12.1-15.1); White Blood Count 4.22 10^3/uL (3.29-11.43)
[2024-08-18 09:31] LABS: Alanine Aminotransferase 7 U/L (0-41); Alkaline Phosphatase 56 U/L (40-130); Anion Gap 16.7 (5-19); Aspartate Amino Transferase 13 U/L (0-40); Blood Urea Nitrogen 24 mg/dL (8-23); Calcium 9.1 mg/dL (8.5-10.5); Carbon Dioxide 22 mmol/L (22-29); Chloride 98 mmol/L (98-107); Creatinine Clr Calc Pharmacy 82.5355; Globulin 2.8 g/dL (1.3-4.6); Glomerular Filtration Rate 84.2 mL/min (90-130); Glucose 121 mg/dL (65-115); Osmolality Calculated 281 mOsm/kg (285-295); Potassium 3.7 mmol/L (3.5-5.1); Sodium 133 mmol/L (136-145); Total Bilirubin 0.5 mg/dL (0.15-1.2); Total Protein 6.8 g/dL (6.6-8.7)
[2024-08-18 09:32] LABS: Lactic Sepsis W/Reflex 1.5 mmol/L (0.5-2.2); Troponin(5th) Baseline 32 ng/L (0-15)
--- NOTE | 2024-08-18 09:33 | CT_ITS ---
WS: [id number] CT ABDOMEN AND PELVIS WITH CONTRAST HISTORY: Tired and weak. Short of breath. Bloody stools. TECHNIQUE: Imaging performed of the abdomen and pelvis with IV contrast. Single phase imaging of the abdomen. Coronal and sagittal reformats are submitted. All CT scans at [facility] use at least one of these dose optimization techniques: automated exposure control; mA and/or kV adjustment per patient size (includes targeted exams where dose is matched to clinical indication); or iterative reconstruction. IV CONTRAST: Omnipaque 350; 100 mL IV. Oral contrast: No DLP: 543.40 mGy.cm COMPARISON: 08/21/2021 Lower thorax: Bibasilar subsegmental atelectasis. Heart is normal size. Moderate size hiatal hernia. Liver/biliary system: Normal size with no intrahepatic dilatation. Gallbladder: Gallbladder is present and contracted. No adjacent inflammation. Pancreas: Normal size pancreas and pancreatic duct. No adjacent inflammation. Spleen: Normal size spleen. No mass or infarct. Adrenal glands: Normal. Right kidney: Normal. Left kidney: Normal. Aorta: Extensive atherosclerotic plaque nearly encasing the abdominal aorta extending into the iliac arteries. Proximal RIGHT common iliac artery aneurysm, 2.2 cm. Lymphadenopathy: None. Free fluid: None. GI tract: Stomach is moderately well distended with fluid. No small bowel obstruction. Moderate diffuse constipation. Moderate segment length of circumferential colonic wall thickening involving the hepatic flexure with a transition point. Although this is a very subtle finding I suspect there may be a colonic neoplasm. The more proximal colon is moderately distended with feces. New finding at the hepatic flexure compared to 2021. Extensive diverticular disease of the descending and sigmoid colon. No acute inflammation. Abdominal wall: Fat containing umbilical hernia. Pelvis: Mildly enlarged heterogeneous prostate encroaching into the bladder. RIGHT lower quadrant small bowel loop closely associated with a patent RIGHT inguinal hernia. There is no hernia at this time or obstruction. Bilateral patent inguinal canals contain fat. Bones: Degenerative spine disease and spondylosis. Very slight anterior wedging of T12. CT/CT abdomen pelvis w con* [id number] IMPRESSION: 1. Moderate segment of circumferential colonic wall thickening involving the h epatic flexure with change in caliber. No adjacent lymph nodes. Suspicious for neoplasm until proven otherwise. 2. Extensive descending and sigmoid diverticulosis without acute diverticuliti s. 3. No abscess or free fluid. 4. 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 5. Extensive atherosclerotic plaque within the aorta and iliac arteries. 6. Patent bilateral inguinal canals containing fat only. There is a small fly l loop closely associated with the orifice of the RIGHT inguinal canal.
[2024-08-18] MEDS: pantoprazole 40 mg SDV 80 MG IVP (09:48)
[2024-08-18] MEDS: iohexol 350 mg/mL 500 mL Btl (per mL) IV (10:17)
--- NOTE | 2024-08-18 10:39 | ECG_ITS ---
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 Measurements Intervals [place] Rate: 76 P: 0 OR: 167 QRS: 5 QRSD: 79 T: 29 QT: 355 QTc: 401 Interpretive Statements SINUS RHYTHM LEFT VENTRICULAR HYPERTROPHY AND ST-T CHANGE [VOLTAGE CRITERIA PLUS ST/T ABNORMALITY] No previous ECG available for comparison Electronically Signed On 08-18-2024 22:15:59 CDT by Niki Dee M.D. [email or web address] [id number]
[2024-08-18 11:11] LABS: Troponin 5 2HR 29.17 ng/L (0-15)
[2024-08-18 11:12] LABS: Troponin 5 2HR Delta -2.83 ABS# (0-10)
--- NOTE | 2024-08-18 14:39 | ECG_ITS ---
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 Measurements Intervals [place] Rate: 75 P: 42 [place]: 183 QRS: 8 QRSD: 80 T: 19 QT: 374 QTc: 418 Interpretive Statements SINUS RHYTHM POSSIBLE RIGHT VENTRICULAR CONDUCTION DELAY [RSR (QR) IN V1/V2] LEFT VENTRICULAR HYPERTROPHY AND ST-T CHANGE [VOLTAGE CRITERIA PLUS ST/T ABNORMALITY] Compared to ECG 08/18/2024 08:48:34 No significant changes Electronically Signed On 08-18-2024 22:15:51 CDT by Niki Dee M.D. [email or web address] [id number]
--- NOTE | 2024-08-19 07:18 | DCPLANNER ---
messaged heart care for er f/u
== END 2024-08-18 11:49 | disposition left against medical advice (07) ==
LOC: ER 11:19 → OPS 13:10 → ER 08-25 12:14
PROVIDERS: Emergency Provider Family Medicine; PCP Family Medicine
DX: D50.9 Iron deficiency anemia, unspecified (principal); I20.89 Other forms of angina pectoris; R19.09 Other intra-abdominal and pelvic swelling, mass and lump; Z53.29 Procedure and treatment not carried out because of patient's decision for other reasons; I10 Essential (primary) hypertension
CPT/HCPCS: 36415; 36430; 71045; 74177; 80053; 81001; 83605; 84484; 85025; 86850; 86900; 86920; 93005; J2470; P9016

== ENCOUNTER → 2024-10-12 08:30 | Outpatient (BNVA) | payer OTHER, SELFPAY | PROVIDERS: PCP Family Medicine; Visit Provider Nurse Practitioner Family | DX: L72.0 Epidermal cyst (principal); L82.1 Other seborrheic keratosis; L57.8 Other skin changes due to chronic exposure to nonionizing radiation; L81.4 Other melanin hyperpigmentation; D18.01 Hemangioma of skin and subcutaneous tissue; Z08 Encounter for follow-up examination after completed treatment for malignant neoplasm; Z85.820 Personal history of malignant melanoma of skin; Z80.8 Family history of malignant neoplasm of other organs or systems; L57.0 Actinic keratosis | CPT/HCPCS: 17000; 99214 ==

== ENCOUNTER → 2024-10-25 14:11 | Outpatient (BNVA) | payer OTHER, SELFPAY | PROVIDERS: PCP Family Medicine; Visit Provider Internal Medicine Cardiovascular Disease | DX: I70.90 Unspecified atherosclerosis (principal); I72.3 Aneurysm of iliac artery; D64.9 Anemia, unspecified; K57.90 Diverticulosis of intestine, part unspecified, without perforation or abscess without bleeding; K21.9 Gastro-esophageal reflux disease without esophagitis; Z79.82 Long term (current) use of aspirin; Z87.891 Personal history of nicotine dependence; R07.9 Chest pain, unspecified | CPT/HCPCS: 99204 ==

== ENCOUNTER 2024-11-01 09:18 | Outpatient (CLI) | payer OTHER, SELFPAY ==
--- NOTE | 2024-11-01 10:00 | ECG_ITS ---
[facility] Test Date: 2024-11-01 Pat Name: Julian Huddleston Department: Room: Gender: Male Front Facer: : 1955 Requested By: Hammad Short Order Number: [id number] Concepcion MD: Luis Carlos Chance M.D. Interpretive Statements Exercise portion of stress test with Chiki protocol: At rest, the patient's blood pressure was 141/79 with a heart rate of 87 bpm. Resting EKG showed normal sinus rhythm and no ST or T wave abnormalities. Patient exercised for a total of 5 minutes and 11 seconds reaching 7 METS of exercise and a maximum heart rate of 171 which is 111% of maximal predicted heart rate. At peak exercise the patient's blood pressure was 174/86. The patient had [address] depression in the inferolateral leads consistent with inducible ischemia. After recovery, the patient's blood pressure was 143/88 with a heart rate of 104 bpm. Conclusion: 1. Average exercise capacity for age. 2. ST depression with exercise consistent with inducible ischemia Electronically Signed On 11-02-2024 23:37:52 CDT by Luis Carlos Chance M.D. [id number]
--- NOTE | 2024-11-01 10:01 | NMCV_ITS ---
NM cici perf SPECT r/s* [id number] Julian Huddleston Age: 69 Gender: M : 1955 Exam Date: 11/01/2024 10:22 Ordering Phys: Hammad Short MD ([email or web address]) Technologist: SOIFA Rivera Exam Location: [facility] Indications: CP STRESS TEST Please see separate stress test report in [facility] for full findings IMAGE PROTOCOL Rest/Stress 1 Exercise Day Radiopharmaceutical Dose (mCi) Administration Site Administered by Rest: Tc-99m 10.6 IV SOFIA Rivera Sestamibi Stress:Tc-99m 32.4 IV Tennille Macias, SOFIA Sestamibi Rest: 01-Nov-2024 60 Discovery 630 Stress: 01-Nov-2024 30 Discovery 630 Radiopharmaceutical was injected at 100% maximum heart rate. Images obtained in supine and prone position. SPECT RESULTS Technical Quality: Good Raw Data Analysis: Normal Image Corrections: No attenuation or motion correction applied Summed Stress Score: 4 Summed Rest Score: 4 Summed Difference Score: 4 PERFUSION FINDINGS Small to medium sized area of reversible perfusion defect seen in the anterior wall. This is consistent with small to medium sized area of ischemia in LAD territory. Reduced radiotracer uptake is seen in inferolateral wall on stress imaging that resolves on prone imaging. Likely attenuation artifact versus medium to large sized area of ischemia in left circumflex artery territory. FUNCTIONAL RESULTS (calculated via Gated SPECT) Stress Image LV EF (%): 47 Stress EDV (mL):108 TID: 0.97 Stress ESV (mL):57 FUNCTIONAL FINDINGS: LV systolic function is mildly reduced IMPRESSIONS 1. Abnormal myocardial perfusion imaging with small to medium sized area of ischemia seen in the LAD territory. 2. Attenuation artifact and left circumflex artery territory seen. Less likely, medium to large sized area of ischemia. 3. LV systolic function is mildly reduced Eriberto Guzman MD (Electronically Signed) Final Date: 01 November 2024 16:39 S
[2024-11-01 11:18] VITALS: BP 143/88; PULSE 99
== END 2024-11-01 09:19 | disposition home or self-care (01) ==
LOC: CDL 09:20
PROVIDERS: PCP Family Medicine; Visit Provider Internal Medicine Cardiovascular Disease
DX: R07.9 Chest pain, unspecified (principal); R93.1 Abnormal findings on diagnostic imaging of heart and coronary circulation
CPT/HCPCS: 36415; 78452; 93017; A9500

== ENCOUNTER 2024-12-22 08:59 | Outpatient (CLI) | payer OTHER, SELFPAY ==
[2024-12-22 09:36] LABS: Hematocrit 32.1 % (37-53); Hemoglobin 9.90 g/dL (11.27-16.99); Mean Corpuscular HGB Conc 30.8 g/dL (30-55); Mean Corpuscular Hemoglobin 24.6 pg (27-33); Mean Corpuscular Volume 79.9 fl (82-101); Nucleated Red Blood Cells % 0 %; Platelet Count 365 10^3/cmm (157-399); Red Blood Count 4.02 10^6/uL (3.85-5.65); White Blood Count 8.66 10^3/uL (3.29-11.43)
[2024-12-22 09:37] VITALS: BP 176/112; PULSE 94; RESP 18; TEMP 36.6; O2SAT 97; BMI 26.6
[2024-12-22 09:54] LABS: Anion Gap 13.8 (5-19); Blood Urea Nitrogen 23 mg/dL (8-23); Calcium 9.3 mg/dL (8.5-10.5); Carbon Dioxide 25 mmol/L (22-29); Chloride 104 mmol/L (98-107); Creatinine Clr Calc Pharmacy 76.1216; Glucose 100 mg/dL (65-115); Osmolality Calculated 292 mOsm/kg (285-295); Potassium 3.8 mmol/L (3.5-5.1); Sodium 139 mmol/L (136-145)
--- NOTE | 2024-12-22 10:09 | PC.NURSE ---
Cath procedure has been cancelled for today per Dr. Short. Patient is needing GI follow up regarding suspicion for mass in abdomen with history of anemia and GI bleeding. Patient reports his EGD/Colonoscopy is scheduled for Jan [address] Short requesting a follow up appointment for this patient for the first week of February and will prescribe new medications for patient . Appointment has been made for 02/11/25 at 1030. Trudy Rawls to order medications and sent through [facility].
--- NOTE | 2024-12-22 10:13 | P.MISC_ITS ---
<Statement entered by Hammad Short MD - 12/22/24 21:17> Patient was evaluated and cared for in conjunction with an advanced practice practitioner. I personally examined the patient and reviewed the chart and all pertinent data including imaging, telemetry, and laboratory results. I discussed the patient in detail with the advanced practice practitioner. Please see their note for complete H&P testing result and agreed upon plan of care for the patient. Miscellaneous Note Purpose of Documentation: Patient was brought for coronary angiogram today due to abnormal stress test. He has history of diverticular mass, anemia due to GI bleed. Hemoglobin has ranged around 7 to 8, history of blood transfusion in the past. Since he is asymptomatic in respect to chest pain and shortness of breath, coronary angiogram not performed today, as he requires further GI workup with colonoscopy and biopsy in [place] on December 25. For now will medically manage with isosorbide mononitrate 30mg daily, and metoprolol succinate 12.5 mg at bedtime. Continue statin therapy. He has follow up scheduled with Dr Short in February.
== END 2024-12-22 09:00 | disposition home or self-care (01) ==
LOC: CCL 09:01
PROVIDERS: PCP Family Medicine; Visit Provider Internal Medicine Cardiovascular Disease
DX: Z53.8 Procedure and treatment not carried out for other reasons (principal)
CPT/HCPCS: 80048; 85025

== ENCOUNTER → 2025-02-11 10:07 | Outpatient (BNVA) | payer OTHER, SELFPAY | PROVIDERS: PCP Family Medicine; Visit Provider Internal Medicine Cardiovascular Disease | DX: I25.10 Atherosclerotic heart disease of native coronary artery without angina pectoris (principal); D64.9 Anemia, unspecified; K57.90 Diverticulosis of intestine, part unspecified, without perforation or abscess without bleeding; I73.9 Peripheral vascular disease, unspecified; Z87.891 Personal history of nicotine dependence; I10 Essential (primary) hypertension | CPT/HCPCS: 99214 ==